=== PATIENT | female | born 1935 | race Caucasian/White ===

== ENCOUNTER 2023-01-27 23:58 | Observation (INO) ==
[2023-01-28] MEDS ORDERED: ALBUT/IPRATROP 3MG/0.5MG NEB 3 ML VIAL INH STA (00:21)
[2023-01-28] MEDS ORDERED: methylPREDNISolone 125 MG/2 ML VIAL IV STA (00:21)
[2023-01-28 00:42] LABS: Albumin Globulin Ratio 1.9 (0.9-2); Albumin Level 4.5 gm/dl (3.4-5.0); BUN Creatinine Ratio 12.7 (10-20); Bilirubin,Total 0.3 mg/dl (0.2-1.0); Creatinine Clr Calc Pharmacy 35.1 ml/min; Est GFR (Non-African American) 45.7 ml/min; Globulin 2.4 gm/dl (2.5-4.0); Magnesium 1.8 mg/dl (1.7-2.4); Potassium 3.6 mmol/L (3.5-5.1); Total Protein 6.9 gm/dl (6.0-8.3)
[2023-01-28 00:43] LABS: Basophils # (auto) 0.08 K/uL (0.00-0.20); Basophils % (auto) 1.1 %; Eosinophils # (auto) 0.79 K/uL (0.00-0.50); Eosinophils % (auto) 10.8 %; Hematocrit (blood only) 36.9 % (37.0-47.0); Hemoglobin 12.4 g/dl (12.0-16.0); Immature Granulocytes # (auto) 0.03 K/uL (0.01-0.20); Immature Granulocytes % (auto) 0.4 %; Lymphocytes # (auto) 1.74 K/uL (1.20-3.40); Lymphocytes % (auto) 23.9 %; Mean Corpuscular Hemoglobin 31.6 pg (25.0-34.0); Mean Corpuscular Hgb Conc 33.6 g/dL (32.0-36.0); Mean Corpuscular Volume 93.9 fL (80.0-100.0); Mean Platelet Volume 9.9 fL (9.4-12.4); Monocytes # (auto) 0.74 K/uL (0.11-0.59); Monocytes % (auto) 10.2 %; Neutrophils # (auto) 3.91 K/uL (1.40-6.50); Neutrophils % (auto) 53.6 %; Platelet Count 344 K/uL (130-400); RDW Coefficient of Variation 12.2 % (11.5-14.5); RDW Standard Deviation 42.4 fL (36.4-46.3); Red Blood Count 3.93 M/uL (4.20-5.40); White Blood Count 7.29 K/ul (4.8-10.8)
--- NOTE | 2023-01-28 00:53 | Emergency Department Note ---
History of Present Illness General Chief complaint: Shortness of Breath/Dyspnea Stated complaint: SHORTNESS OF BREATH, COUGH Time Seen by Provider: 01/28/23 00:06 History of Present Illness This 87-year-old female with a history of aspiration pneumonia presents to the ER for increasing shortness of breath and coughing who believes she is aspirating this past week. Patient had a barium swallow study recently at [facility] and I saw that she was actively aspirating on the study. She is due for surgery with ENT next week for a Zenker's diverticulum. Patient states her breathing is getting worse and is not feeling well. Past Med/Surg History Social History Smoking Status: Never smoker Preferred Language: Mohawk Feels Safe at Home: Yes Review of Systems A total of 10 systems reviewed and were otherwise negative Physical Exam Vital Signs Vital Signs - 24 hr 01/28/23 00:01 01/28/23 00:01 01/28/23 00:01 Temperature 36.7 C Temperature Source Oral Pulse Rate 98 H Pulse Rate from SpO2 Sensor Respiratory Rate 22 Respiratory Effort / Characteristics Respiratory Depth Normal Blood Pressure 196/116 H Blood Pressure Mean 142 Pulse Oximetry 96 Oxygen Delivery Method Room Air Room Air Room Air Sepsis Recent Fever Within 48 Hours No Sepsis New/Unexplained Change in Mental Status No Sepsis Action Taken by Nursing No Action Required 01/28/23 00:01 01/28/23 00:07 01/28/23 00:44 Temperature Temperature Source Pulse Rate 102 H Pulse Rate from SpO2 Sensor Respiratory Rate Respiratory Effort / Characteristics Non-Labored Respiratory Depth Normal Blood Pressure Blood Pressure Mean Pulse Oximetry 100 Oxygen Delivery Method Nebulizer Sepsis Recent Fever Within 48 Hours Sepsis New/Unexplained Change in Mental Status Sepsis Action Taken by Nursing 01/28/23 00:34 01/28/23 01:00 Temperature Temperature Source Pulse Rate 90 88 Pulse Rate from SpO2 Sensor 89 88 Respiratory Rate 15 20 Respiratory Effort / Characteristics Respiratory Depth Blood Pressure 172/77 H 131/67 Blood Pressure Mean 108 88 Pulse Oximetry 95 100 Oxygen Delivery Method Sepsis Recent Fever Within 48 Hours Sepsis New/Unexplained Change in Mental Status Sepsis Action Taken by Nursing VITALS: Vitals are noted on the nurse's note and reviewed by myself. Vital si gns reviewed. GENERAL: Pleasant female having a hard time speaking in full sentences, in no acute distress, nondiaphoretic, well-developed well-nourished. SKIN: The skin was without rashes, erythema, edema, or bruising. There is no tenting of the skin. Capillary reflex less than 2 seconds. HEAD: Normocephalic atraumatic. EARS: External auditory canals clear EYES: Pupils equal round and reactive to light and accommodation. Conjunctivae without injection, sclerae without icterus. Extraocular movements intact. NOSE: Patent, turbinates without inflammation or discharge. MOUTH: Mucous membranes moist. Pharynx without erythema or exudate. Uvula midline. Airway patent. Tongue does not deviate. NECK: Supple without nuchal rigidity. No lymphadenopathy. No thyromegaly. Cervical spine is nontender. No JVD. HEART: Regular rate and rhythm LUNGS: Diffuse inspiratory and end expiratory wheezes, No retractions or accessory muscle use. ABDOMEN: Positive bowel sounds x 4. Normal tympanic percussion. Soft, nontender, without masses or organomegaly. Ulloa sign negative. No guarding or rebound tenderness. No CVA tenderness MUSCULOSKELETAL: No muscle atrophy, erythema, or edema noted. NEURO: Patient was alert and oriented to person place and time. Normal sensation to light and sharp touch. No focal neurological deficits. Course Administered Medications Discontinued Medications Albuterol (Albut/Ipratrop 3mg/0.5mg Neb 3 Ml Vial) 3 ml INH NOW STA Stop: 01/28/23 00:22 Last Admin: 01/28/23 00:36 Dose: 3 ml Documented By: GERARDO Methylprednisolone (Methylprednisolone 125 Mg/2 Ml Vial) 125 mg IV NOW STA Stop: 01/28/23 00:22 Last Admin: 01/28/23 00:36 Dose: 125 mg Documented By: GERARDO Medical Decision Making Medical Records Attestation: I reviewed the patient's medical records. Home Medications Current Medication List: was personally reviewed by me Laboratory Data Attestation: I reviewed the patient's lab results. 01/28/23 00:10 01/28/23 00:10 Lab Results 01/28/23 01/28/23 01/28/23 Range/Units 00:10 00:10 00:35 WBC 7.29 (4.8-10.8) K/ul RBC 3.93 L (4.20-5.40) M/uL Hgb 12.4 (12.0-16.0) g/dl Hct 36.9 L (37.0-47.0) % MCV 93.9 (80.0-100.0) fL MCH 31.6 (25.0-34.0) pg MCHC 33.6 (32.0-36.0) g/dL RDW Std Deviation 42.4 (36.4-46.3) fL RDW Coeff of Jax 12.2 (11.5-14.5) % Plt Count 344 (130-400) K/uL MPV 9.9 (9.4-12.4) fL Immature Gran % (Auto) 0.4 % Neut % (Auto) 53.6 % Lymph % (Auto) 23.9 % [place] % (Auto) 10.2 % Eos % (Auto) 10.8 % Baso % (Auto) 1.1 % Neut # (Auto) 3.91 (1.40-6.50) K/uL Lymph # (Auto) 1.74 (1.20-3.40) K/uL [place] # (Auto) 0.74 H (0.11-0.59) K/uL Eos # (Auto) 0.79 H (0.00-0.50) K/uL Baso # (Auto) 0.08 (0.00-0.20) K/uL Immature Gran # (Auto) 0.03 (0.01-0.20) K/uL Sodium 137 (136-145) mmol/L Potassium 3.6 (3.5-5.1) mmol/L Chloride 103 (98-107) mmol/L Carbon Dioxide 25 (21-32) mmol/L Anion Gap 9 (3-11) BUN 14 (6-23) mg/dl Creatinine 1.10 (0.6-1.2) mg/dl Est Cr Clr Drug Dosing 35.1 ml/min Est GFR ( Amer) 53.0 ml/min Est GFR (Non-Af Amer) 45.7 ml/min BUN/Creatinine Ratio 12.7 (10-20) Glucose 131 H (70-99(Fasting)) mg/dl Lactate 2.3 H* (0.4-2.0) mmol/L Calcium 9.0 (8.6-10.3) mg/dl Magnesium 1.8 (1.7-2.4) mg/dl Total Bilirubin 0.3 (0.2-1.0) mg/dl AST 28 (13-39) U/L ALT 19 (7-52) U/L Alkaline Phosphatase 40 (34-104) U/L Troponin I High Sens 5.9 (0-14) pg/ml Total Protein 6.9 (6.0-8.3) gm/dl Albumin 4.5 (3.4-5.0) gm/dl Globulin 2.4 L (2.5-4.0) gm/dl Albumin/Globulin Ratio 1.9 (0.9-2) TSH 10.103 H (0.300-4.500) uIu/ml Free T4 1.09 (0.61-1.60) ng/dl Urine Color Urine Appearance (Clear) Urine pH (4.5-7.5) Ur Specific [place] (1.000-1.030) Urine Protein (Negative) Urine Glucose (UA) (Negative) Urine Ketones (Negative) Urine Blood (Negative) Urine Nitrite (Negative) Urine Bilirubin (Negative) Urine Urobilinogen (Negative) Ur Leukocyte Esterase (Negative) Urine WBC (Auto) (0-5) /hpf Urine RBC (Auto) (0-4) /hpf U Hyaline Cast (Auto) (0-5) /lpf U Epithel Cells (Auto) (0-5) /lpf Urine Bacteria (Auto) (Negative) Adenovirus (PCR) (NotDetected) B. pertussis DNA (PCR) (NotDetected) B.parapertussis DNA PCR (NotDetected) C. pneumoniae DNA (PCR) (NotDetected) Coronavirus OC43 (PCR) (NotDetected) Coronavirus HKU1 (PCR) (NotDetected) Coronavirus 229E (PCR) (NotDetected) SARS-CoV-2 (PCR) (NotDetected) Coronavirus NL63 (PCR) (NotDetected) Human Metapneumovir PCR (NotDetected) Influenza Type A (PCR) (NotDetected) Influenza Type B (PCR) (NotDetected) M. pneumoniae (PCR) (NotDetected) Parainfluenza 1 (PCR) (NotDetected) Parainfluenza 2 (PCR) (NotDetected) Parainfluenza 3 (PCR) (NotDetected) Parainfluenza 4 (PCR) (NotDetected) RSV (PCR) (NotDetected) Entero/Rhino (PCR) (NotDetected) 01/28/23 01/28/23 Range/Units 00:40 00:40 WBC (4.8-10.8) K/ul RBC (4.20-5.40) M/uL Hgb (12.0-16.0) g/dl Hct (37.0-47.0) % MCV (80.0-100.0) fL MCH (25.0-34.0) pg MCHC (32.0-36.0) g/dL RDW Std Deviation (36.4-46.3) fL RDW Coeff of Jax (11.5-14.5) % Plt Count (130-400) K/uL MPV (9.4-12.4) fL Immature Gran % (Auto) % Neut % (Auto) % Lymph % (Auto) % [place] % (Auto) % Eos % (Auto) % Baso % (Auto) % Neut # (Auto) (1.40-6.50) K/uL Lymph # (Auto) (1.20-3.40) K/uL [place] # (Auto) (0.11-0.59) K/uL Eos # (Auto) (0.00-0.50) K/uL Baso # (Auto) (0.00-0.20) K/uL Immature Gran # (Auto) (0.01-0.20) K/uL Sodium (136-145) mmol/L Potassium (3.5-5.1) mmol/L Chloride (98-107) mmol/L Carbon Dioxide (21-32) mmol/L Anion Gap (3-11) BUN (6-23) mg/dl Creatinine (0.6-1.2) mg/dl Est Cr Clr Drug Dosing ml/min Est GFR ( Amer) ml/min Est GFR (Non-Af Amer) ml/min BUN/Creatinine Ratio (10-20) Glucose (70-99(Fasting)) mg/dl Lactate (0.4-2.0) mmol/L Calcium (8.6-10.3) mg/dl Magnesium (1.7-2.4) mg/dl Total Bilirubin (0.2-1.0) mg/dl AST (13-39) U/L ALT (7-52) U/L Alkaline Phosphatase (34-104) U/L Troponin I High Sens (0-14) pg/ml Total Protein (6.0-8.3) gm/dl Albumin (3.4-5.0) gm/dl Globulin (2.5-4.0) gm/dl Albumin/Globulin Ratio (0.9-2) TSH (0.300-4.500) uIu/ml Free T4 (0.61-1.60) ng/dl Urine Color Yellow Urine Appearance Clear (Clear) Urine pH 5.5 (4.5-7.5) Ur Specific [place] 1.009 (1.000-1.030) Urine Protein Negative (Negative) Urine Glucose (UA) Negative (Negative) Urine Ketones Negative (Negative) Urine Blood Trace H (Negative) Urine Nitrite Negative (Negative) Urine Bilirubin Negative (Negative) Urine Urobilinogen Negative (Negative) Ur Leukocyte Esterase Negative (Negative) Urine WBC (Auto) 0 (0-5) /hpf Urine RBC (Auto) 0-4 (0-4) /hpf U Hyaline Cast (Auto) 0 (0-5) /lpf U Epithel Cells (Auto) 0-5 (0-5) /lpf Urine Bacteria (Auto) Negative (Negative) Adenovirus (PCR) Not Detected (NotDetected) B. pertussis DNA (PCR) Not Detected (NotDetected) B.parapertussis DNA PCR Not Detected (NotDetected) C. pneumoniae DNA (PCR) Not Detected (NotDetected) Coronavirus OC43 (PCR) Not Detected (NotDetected) Coronavirus HKU1 (PCR) Not Detected (NotDetected) Coronavirus 229E (PCR) Not Detected (NotDetected) SARS-CoV-2 (PCR) Not Detected (NotDetected) Coronavirus NL63 (PCR) Not Detected (NotDetected) Human Metapneumovir PCR Not Detected (NotDetected) Influenza Type A (PCR) Not Detected (NotDetected) Influenza Type B (PCR) Not Detected (NotDetected) M. pneumoniae (PCR) Not Detected (NotDetected) Parainfluenza 1 (PCR) Not Detected (NotDetected) Parainfluenza 2 (PCR) Not Detected (NotDetected) Parainfluenza 3 (PCR) Not Detected (NotDetected) Parainfluenza 4 (PCR) Not Detected (NotDetected) RSV (PCR) Not Detected (NotDetected) Entero/Rhino (PCR) Not Detected (NotDetected) Imaging Data Attestation: I personally reviewed and interpreted this imaging study as follows: MDM Narrative Prior records/ancillary studies reviewed. Triage Nursing notes reviewed. Additional history obtained from the family. The patient's history was concerning for respiratory difficulties. Differential diagnosis: Etiologies such as infections, reactive airway disease, pneumonia, pneumothorax, COPD, CHF, cardiac ischemia, pulmonary embolism, musculoskeletal, gastrointestinal, as well as others were entertained. Physical examination: As above. ER treatment provided: An order was placed for continuous cardiac monitoring. The monitor shows a rate of 60-1 10 with a sinus rhythm per my interpretation. Nebulizer, Solu-Medrol, Zosyn, vancomycin On reassessment the patient felt better. Diagnostic interpretation by me: The electrocardiogram was ordered for SOB. ECG: Normal sinus, normal intervals, no acute ST-T wave changes, rate of 96. Impression normal sinus rhythm independently interpreted by myself I think arrhythmia is unlikely. EKG shows normal sinus rhythm with no interval abnormalities such as QT prolongation or WPW. There are no findings to suggest Brugada syndrome. Cardiac monitoring in the emergency department reveals no tachycardic or bradycardic dysrhythmia. Hypertrophic cardiomyopathy was considered but there are no clear historical elements pointing toward this. EKG is not suggestive. The QRS voltage is not extremely large and there are no sugge stive Q waves. The labs Independently Interpreted by myself revealed no worrisome leukocytosis, mild hyperglycemia without DKA Imaging studies: Chest x-ray with no overt consolidation, pneumothorax or free air per my independent interpretation Consultation: A consultation was placed with the hospitalist. The case was discussed and diagnostics were reviewed. The patient was evaluated in the ER for further treatment. This appears to be consistent with aspiration pneumonia with asthma exacerbation. Patient was quite short of breath. She keeps on having recurrent aspiration. Family brought her here instead of [facility] secondary to the prolonged weights. I did review the patient's medical history on her [facility] benita. Patient is scheduled in the next week or [address] Dr[address] Casper for her Zenker's diverticulum. Patient was started on antibiotics. She was m edicated as above. Medicine was consulted and the case was discussed. She will be evaluated by the medical team for admission.. By the evaluation outlined above emergent etiologies such as CHF, cardiac ischemia, pulmonary embolism, pneumothorax, musculoskeletal, serious bacterial infections, as well as others were deemed relatively unlikely. The pt informed about the findings as listed above. All questions were answered and pleased with the treatment. The chart was completed utilizing [employer] Speech voice recognition software. Grammatical errors, random word insertions, pronoun errors, and incomplete sentences are an occassional consequence of this system due to software limitat ions, ambient noise, and hardware issues. Any formal questions or concerns about the content, text, or information contained within the body of this dictation should be directly addressed to the physician nursing assistant for clarification. Impression & Plan Aspiration pneumonia, Asthma with exacerbation Discharge Plan Visit Data Chief Complaint: Shortness of Breath/Dyspnea Stated Complaint: SHORTNESS OF BREATH, COUGH ED Provider: Ayala Richards ED Midlevel Provider: Chelle Martínez Discharge Problem: Aspiration pneumonia, Asthma with exacerbation Patient Disposition: Admitted As Inpatient Condition: Fair Forms Stand Alone Forms: [facility] Referrals Referrals: PCP,NO [Physician] - Aspiration pneumonia Qualifiers: Aspiration pneumonia type: unspecified Laterality: unspecified laterality Lung location: unspecified part of lung Qualified Code(s): J69.0 - Pneumonitis due to inhalation of food and vomit
[2023-01-28 01:00] LABS: Troponin I High Sensitivity 5.9 pg/ml (0-14)
[2023-01-28 01:07] LABS: Appearance Urine Clear (Clear); Bacteria Urine Automated Negative (Negative); Bilirubin Urine Negative (Negative); Blood Urine Trace (Negative); Cast Urine Automated 0 /lpf (0-5); Color Urine Yellow; Epithelial Cell Urine Auto 0-5 /lpf (0-5); Glucose Urine UA Negative (Negative); Ketones Urine Negative (Negative); Leukocyte Esterase Urine Negative (Negative); Nitrite Urine Negative (Negative); Protein Urine Negative (Negative); RBC Urine Automated 0-4 /hpf (0-4); Specific Gravity Urine 1.009 (1.000-1.030); Urobilinogen Urine Negative (Negative); WBC Urine Automated 0 /hpf (0-5); pH Urine 5.5 (4.5-7.5)
[2023-01-28 01:09] LABS: Thyroid Stimulating Hormone 10.103 uIu/ml (0.300-4.500)
[2023-01-28] MEDS ORDERED: VANCOMYCIN CONSULT ACTIVE PRN ×2 (01:35→04:45)
[2023-01-28] MEDS ORDERED: PIPERACILLIN/TAZOBACTAM 4.5 GM/100 ML BAG IV ONE (01:35)
[2023-01-28] MEDS ORDERED: VANCOMYCIN HCL 1,500 MG in SODIUM CHLORIDE 0.9% 500 ML IV ONE (01:35)
[2023-01-28 01:51] LABS: Adenovirus PCR Not Detected (NotDetected); Bordetella parapertussis PCR Not Detected (NotDetected); Bordetella pertussis PCR Not Detected (NotDetected); Chlamydia pneumoniae PCR Not Detected (NotDetected); Coronavirus 229E PCR Not Detected (NotDetected); Coronavirus CoV-2 (COVID19)PCR Not Detected (NotDetected); Coronavirus HKU1 PCR Not Detected (NotDetected); Coronavirus NL63 PCR Not Detected (NotDetected); Coronavirus OC43PCR Not Detected (NotDetected); Human Metapneumovirus PCR Not Detected (NotDetected); Influenza A PCR Not Detected (NotDetected); Influenza B PCR Not Detected (NotDetected); Mycoplasma pneumoniae PCR Not Detected (NotDetected); Parainfluenza Virus 1 PCR Not Detected (NotDetected); Parainfluenza Virus 2 PCR Not Detected (NotDetected); Parainfluenza Virus 3 PCR Not Detected (NotDetected); Parainfluenza Virus 4 PCR Not Detected (NotDetected); Respiratory Syncytial VirusPCR Not Detected (NotDetected); Rhinovirus/Enterovirus PCR Not Detected (NotDetected)
[2023-01-28 02:08] LABS: T4 Free Thyroxine 1.09 ng/dl (0.61-1.60)
[2023-01-28] MEDS ORDERED: SODIUM CHLORIDE 0.9% 1,000 ML IV ONE (02:32)
[2023-01-28] MEDS ORDERED: SODIUM CHLORIDE 0.9% 500 ML IV ONE (02:32)
--- NOTE | 2023-01-28 02:41 | History & Physical Report ---
Date of Service January 28, 2023 Assessment & Plan (1) Zenker's diverticulum: (2) Hypertension: (3) GERD (gastroesophageal reflux disease): (4) Aspiration pneumonia: Plan Aspiration pneumonia/asthma exacerbation- Secondary to Zenker's diverticulum and GERD Continue vancomycin IV and Zosyn IV begun in the ED Given Solu-Medrol 125 mg IV in ED, will continue 40 mg IV every 12 hours Duonebs every 4 hours while awake and every 2 hours when necessary. Consult speech therapy For now have pured food and nectar thickened liquids Aspiration precautions To undergo surgical repair of Zenker's diverticulum tentatively scheduled for 02/07/[address] Casper at [facility] Hypertension/valve replacement/history of left CEA- Continue metoprolol succinate ER 25 mg every morning and valsartan 80 mg every morning Continue clopidogrel GERD- Given famotidine 20 mg IV in the ED On Esomeprazole 40 mg daily orally as an outpatient Pantoprazole 40 mg IV daily while inpatient History of Present Illness Chief Complaint: The patient presents to the emergency department with hers and her family's concerns regarding increasing shortness of breath and coughing which they are concerned is related to aspiration that she was found to have during a barium swallow test 10 days ago at [facility] Primary Care Provider: Rika Ordonez The patient is an 87-year-old female with a past medical history including aspiration pneumonia, asthma, hyperlipidemia, allergic rhinitis, carotid artery stenosis, GERD, hypothyroidism, hypertension, hypokalemia, vitamin D deficiency and a Zenker's diverticulum. She presents to the emergency department with a few days of cough, associated with eating, and progressive shortness of breath and rattling sounds when she is breathing. She underwent a barium swallow test about 10 days ago at [facility], was found to have a Zenker's diverticulum, and is to undergo surgical repair by Dr. Casper at [facility] on 02/07/2023. Her daughter reports that she does best with pured foods, and thickened liquids, but she has been off her diet recently due to fami ly issues Past Med/Surg History Medical History (Updated 01/28/23 @ 04:14 by Cedric Patel MD) GERD (gastroesophageal reflux disease) Hyperlipidemia Hypertension Hypothyroidism (acquired) Vitamin D deficiency Zenker's diverticulum Surgical History (Updated 01/28/23 @ 04:14 by Cedric Patel MD) Heart valve replaced History of appendectomy History of cholecystectomy History of left-sided carotid endarterectomy Social History Smoking Status: Never smoker Preferred Language: Romanian Feels Safe at Home: Yes Review of Systems Review of Systems: The patient denies chest pain, palpitations, lower extremity swelling, sore throat, fevers, chills, sweats, vomiting, diarrhea , constipation, abdominal pain, pelvic pain, blood in urine or stool, dysuria, urinary frequency or urgency, lightheadedness, dizziness, headache, memory loss, loss of consciousness, rash, abnormal bruising or bleeding, imbalance, focal or generalized weakness, numbness or tingling in arms or legs, generalized arthralgias or myalgias, back or neck pain, or night sweats. The review of systems is otherwise negative other than for that already noted above, and at least 10 systems have been reviewed. Physical Exam Physical Exam: The patient is awake, alert and oriented 3, well developed and well nourished, normocephalic and atraumatic, lying in bed and in no acute distress. HEENT--PERRL, EOMI, mucous membranes and oropharynx mildly dry. Neck--supple. No JVD. No bruits. Thyroid normal, trachea midline, no a denopathy. Heart--normal S1 and S2. No murmurs, rubs or gallops. Lungs--diffuse inspiratory and extra wheezing bilaterally. No respiratory distress, no accessory muscle use. Abdomen--normal bowel sounds and soft. Nontender. Nondistended, no hernias or masses, no organomegaly. Extremities--no cyanosis or clubbing. No edema. Dermatologic--normal skin turgor, normal color, no abnormal lymph nodes, no rash. Neurologic--cranial nerves II through XII grossly intact. Rheumatologic--normal range of motion. Psychiatric--normal affect. Results & Data Results & Data Vital Signs (Past 12 Hours) Vital Signs Temp Pulse Resp BP Pulse Ox O2 Del Method 01/28/23 01:00 88 20 131/67 100 01/28/23 00:34 90 15 172/77 H 95 01/28/23 00:44 100 Nebulizer 01/28/23 00:07 102 H 01/28/23 00:01 Room Air 01/28/23 00:01 36.7 C 98 H 22 196/116 H 96 Room Air 01/28/23 00:01 Room Air Laboratory Results Laboratory Results WBC 7.29 K/ul (4.8-10.8) 01/28/23 00:10 RBC 3.93 M/uL (4.20-5.40) L 01/28/23 00:10 Hgb 12.4 g/dl (12.0-16.0) 01/28/23 00:10 Hct 36.9 % (37.0-47.0) L 01/28/23 00:10 MCV 93.9 fL (80.0-100.0) 01/28/23 00:10 MCH 31.6 pg (25.0-34.0) 01/28/23 00:10 MCHC 33.6 g/dL (32.0-36.0) 01/28/23 00:10 RDW Std Deviation 42.4 fL (36.4-46.3) 01/28/23 00:10 RDW Coeff of Jax 12.2 % (11.5-14.5) 01/28/23 00:10 Plt Count 344 K/uL (130-400) 01/28/23 00:10 MPV 9.9 fL (9.4-12.4) 01/28/23 00:10 Immature Gran % (Auto) 0.4 % 01/28/23 00:10 Neut % (Auto) 53.6 % 01/28/23 00:10 Lymph % (Auto) 23.9 % 01/28/23 00:10 [place]da % (Auto) 10.2 % 01/28/23 00:10 Eos % (Auto) 10.8 % 01/28/23 00:10 Baso % (Auto) 1.1 % 01/28/23 00:10 Neut # (Auto) 3.91 K/uL (1.40-6.50) 01/28/23 00:10 Lymph # (Auto) 1.74 K/uL (1.20-3.40) 01/28/23 00:10 [place]da # (Auto) 0.74 K/uL (0.11-0.59) H 01/28/23 00:10 Eos # (Auto) 0.79 K/uL (0.00-0.50) H 01/28/23 00:10 Baso # (Auto) 0.08 K/uL (0.00-0.20) 01/28/23 00:10 Immature Gran # (Auto) 0.03 K/uL (0.01-0.20) 01/28/23 00:10 Sodium 137 mmol/L (136-145) 01/28/23 00:10 Potassium 3.6 mmol/L (3.5-5.1) 01/28/23 00:10 Chloride 103 mmol/L (98-107) 01/28/23 00:10 Carbon Dioxide 25 mmol/L (21-32) 01/28/23 00:10 Anion Gap 9 (3-11) 01/28/23 00:10 BUN 14 mg/dl (6-23) 01/28/23 00:10 Creatinine 1.10 mg/dl (0.6-1.2) 01/28/23 00:10 Est Cr Clr Drug Dosing 35.1 ml/min 01/28/23 00:10 Est GFR ( Amer) 53.0 ml/min 01/28/23 00:10 Est GFR (Non-Af Amer) 45.7 ml/min 01/28/23 00:10 BUN/Creatinine Ratio 12.7 (10-20) 01/28/23 00:10 Glucose 131 mg/dl (70-99(Fasting)) H 01/28/23 00:10 Lactate 2.3 mmol/L (0.4-2.0) H* 01/28/23 00:35 Calcium 9.0 mg/dl (8.6-10.3) 01/28/23 00:10 Magnesium 1.8 mg/dl (1.7-2.4) 01/28/23 00:10 Total Bilirubin 0.3 mg/dl (0.2-1.0) 01/28/23 00:10 AST 28 U/L (13-39) 01/28/23 00:10 ALT 19 U/L (7-52) 01/28/23 00:10 Alkaline Phosphatase 40 U/L (34-104) 01/28/23 00:10 Troponin I High Sens 5.9 pg/ml (0-14) 01/28/23 00:10 Total Protein 6.9 gm/dl (6.0-8.3) 01/28/23 00:10 Albumin 4.5 gm/dl (3.4-5.0) 01/28/23 00:10 Globulin 2.4 gm/dl (2.5-4.0) L 01/28/23 00:10 Albumin/Globulin Ratio 1.9 (0.9-2) 01/28/23 00:10 TSH 10.103 uIu/ml (0.300-4.500) H 01/28/23 00:10 Free T4 1.09 ng/dl (0.61-1.60) 01/28/23 00:10 Urine Color Yellow 01/28/23 00:40 Urine Appearance Clear (Clear) 01/28/23 00:40 Urine pH 5.5 (4.5-7.5) 01/28/23 00:40 Ur Specific [place] 1.009 (1.000-1.030) 01/28/23 00:40 Urine Protein Negative (Negative) 01/28/23 00:40 Urine Glucose (UA) Negative (Negative) 01/28/23 00:40 Urine Ketones Negative (Negative) 01/28/23 00:40 Urine Blood Trace (Negative) H 01/28/23 00:40 Urine Nitrite Negative (Negative) 01/28/23 00:40 Urine Bilirubin Negative (Negative) 01/28/23 00:40 Urine Urobilinogen Negative (Negative) 01/28/23 00:40 Ur Leukocyte Esterase Negative (Negative) 01/28/23 00:40 Urine WBC (Auto) 0 /hpf (0-5) 01/28/23 00:40 Urine RBC (Auto) 0-4 /hpf (0-4) 01/28/23 00:40 U Hyaline Cast (Auto) 0 /lpf (0-5) 01/28/23 00:40 U Epithel Cells (Auto) 0-5 /lpf (0-5) 01/28/23 00:40 Urine Bacteria (Auto) Negative (Negative) 01/28/23 00:40 Adenovirus (PCR) Not Detected (NotDetected) 01/28/23 00:40 B. pertussis DNA (PCR) Not Detected (NotDetected) 01/28/23 00:40 B.parapertussis DNA PCR Not Detected (NotDetected) 01/28/23 00:40 C. pneumoniae DNA (PCR) Not Detected (NotDetected) 01/28/23 00:40 Coronavirus OC43 (PCR) Not Detected (NotDetected) 01/28/23 00:40 Coronavirus HKU1 (PCR) Not Detected (NotDetected) 01/28/23 00:40 Coronavirus 229E (PCR) Not Detected (NotDetected) 01/28/23 00:40 SARS-CoV-2 (PCR) Not Detected (NotDetected) 01/28/23 00:40 Coronavirus NL63 (PCR) Not Detected (NotDetected) 01/28/23 00:40 Human Metapneumovir PCR Not Detected (NotDetected) 01/28/23 00:40 Influenza Type A (PCR) Not Detected (NotDetected) 01/28/23 00:40 Influenza Type B (PCR) Not Detected (NotDetected) 01/28/23 00:40 M. pneumoniae (PCR) Not Detected (NotDetected) 01/28/23 00:40 Parainfluenza 1 (PCR) Not Detected (NotDetected) 01/28/23 00:40 Parainfluenza 2 (PCR) Not Detected (NotDetected) 01/28/23 00:40 Parainfluenza 3 (PCR) Not Detected (NotDetected) 01/28/23 00:40 Parainfluenza 4 (PCR) Not Detected (NotDetected) 01/28/23 00:40 RSV (PCR) Not Detected (NotDetected) 01/28/23 00:40 Entero/Rhino (PCR) Not Detected (NotDetected) 01/28/23 00:40 Code Status & VTE Plan Code Status Full code VTE Prophylaxis Plan VTE Prophylaxis will be ordered: Yes PG Care Time/CCT Total # of Minutes Spent Total Time Spent with Patient: Total time spent is greater than 50% in coordination of care (as documented) at patient's floor/unit and/or counseling patient: Coding Level of Care Code 33863 INT INP/OBS CARE 3/75MIN Diagnoses Zenker's diverticulum K22.5 Hypertension I10 GERD (gastroesophageal reflux disease) K21.9 Aspiration pneumonia J69.0 Aspiration pneumonia type: unspecified Laterality: unspecified laterality Lung location: unspecified part of lung (4) Aspiration pneumonia Aspiration pneumonia type: unspecified Laterality: unspecified laterality Lung location: unspecified part of lung Qualified Code(s): J69.0 - Pneumonitis due to inhalation of food and vomit
--- NOTE | 2023-01-28 03:14 | Emergency Department Note ---
ED Visit Note I agree with the diagnosis and management decisions and have been personally involved in the case. Patient is likely suffering from an aspiration event. Patient's lactate is noted to be 2.3 with a normal WBC and no fever. She was covered with broad-spectrum antibiotics and given IV fluids based on ideal body weight at 30 mL/kg. patient's case was discussed with the hospitalist service for admission and further management. Please see Kirsty Martínez PA-C's notes for further details of the history, physical and visit. .
[2023-01-28] MEDS ORDERED: INFLUENZA VACCINE HIGH-DOSE (HD-IIV4) PF 65+ 0.7mL SYR IM ONE (04:44)
[2023-01-28] MEDS ORDERED: ACETAMINOPHEN 325 MG TAB PO PRN (04:45)
[2023-01-28] MEDS ORDERED: ONDANSETRON INJ 2 MG/ML 2 ML VIAL IV PRN (04:45)
[2023-01-28] MEDS: NSS + 20MEQ KCL 20 MEQ/1,000 ML BAG IV SCH (05:45)
[2023-01-28] MEDS: ALBUT/IPRATROP 3MG/0.5MG NEB 3 ML VIAL NEB SCH ×4 (06:57→19:54)
--- NOTE | 2023-01-28 07:19 | Pharmacy Report ---
Pharmacy PK ABX Note - Date of Service January 28, 2023 - Assessment and Plan Assessment * Ms Redd is an 87 year old F receiving vanc/Zosyn for treatment of aspiration pna/asthma exac. * Pertinent microbiologic data includes: blood cx pending Plan Vancomycin * Loading dose: 1500 mg IV x 1 * Maintenance dose: 1250 mg IV every 24 hours * Regimen is predicted to achieve target AUC/KEMAR of 400-600 mg/L.hr * Will evaluate a vanc level in 24-48hr if pt remains on vanc therapy Zosyn 4.5gm IV q8h Pharmacy will continue to follow and will adjust dose/frequency as necessary. Thank you. Pharmacy has transitioned to AUC monitoring for vancomycin. AUC/KEMAR is the preferred PK/PD target and is associated with decreased risk of nephrotoxicity compared to traditional trough targets.
[2023-01-28] MEDS: PIPERACILLIN/TAZOBACTAM 4.5 GM in DEXTROSE 5% MINI-B 100 ML IV SCH ×2 (07:29→18:24)
--- NOTE | 2023-01-28 07:33 | XRay Report ---
XR chest 1V portable CLINICAL HISTORY: Dyspnea. COMPARISON STUDY: No previous studies for comparison. FINDINGS: Lung volumes are mildly diminished. There is no pneumothorax or pleural effusion. Prostheti c cardiac valve is noted. Borderline cardiomegaly. No evidence for pulmonary edema. There is no conso lidation to suggest pneumonia. Minimal left basilar opacity favors atelectasis. IMPRESSION: 1. No acute cardiopulmonary findings. 2. Low lung volumes. Mild left basilar opacity which favors atelectasis. ACT 112: Negative or not required by law. Electronically signed by: Eddie Mckeon M.D. 01/28/2023 7:32 AM
[2023-01-28] MEDS: methylPREDNISolone 40 MG in SYRINGE 0 ML IV SCH ×2 (09:20→21:11)
--- NOTE | 2023-01-28 09:42 | Electrocardiogram Report ---
Test Reason : Blood Pressure : / mmHG Vent. Rate : 096 BPM Atrial Rate : 096 BPM P-R Int : 200 ms QRS Dur : 074 ms QT Int : 362 ms P-R-T Axes : 009 -05 034 degrees QTc Int : 457 ms Normal sinus rhythm Voltage criteria for left ventricular hypertrophy Borderline ECG No previous ECGs available Confirmed by Karsten Riley ([id number]) on 01/28/2023 9:41:46 AM Referred By: REFERRED SELF Confirmed By:Karsten Riley
[2023-01-28] MEDS ORDERED: VANCOMYCIN HCL 1,250 MG in SODIUM CHLORIDE 0.9% 250 ML IV SCH (16:00)
--- NOTE | 2023-01-28 17:17 | XRay Report ---
XR chest 2V PA/lateral CLINICAL HISTORY: diffuse b/l wheezing, crackles b/l; eval pneumonia COMPARISON STUDY: Chest radiograph performed earlier today. FINDINGS: Lung volumes are normal. There is no pneumothorax or pleural effusion. No consolidation is identified to suggest pneumonia. There is no evidence for pulmonary edema. There is mild cardiomegaly . Prosthetic cardiac valve is noted. Surgical clips within the neck are incidentally noted. IMPRESSION: No acute cardiopulmonary findings. ACT 112: Negative or not required by law. Electronically signed by: Eddie Mckeon M.D. 01/28/2023 5:16 PM
[2023-01-28] MEDS ORDERED: CLOPIDOGREL BISULFATE 75 MG TAB PO ONE (19:18)
--- NOTE | 2023-01-28 19:25 | Hospitalist Progress Note ---
Date of Service January 28, 2023 Assessment & Plan (1) Aspiration pneumonia: Plan: suspected. remains on zosyn. has diffuse wheezing on lung exam. cont nebs. cont IV steroids. cont IV abx. video swallow tomorrow by speech therapy. repeat cxr this evening. (2) Zenker's diverticulum: Plan: Dx ~2 weeks ago at [facility]. Thought to be causing most of her dysphagia. To undergo surgical repair of Zenker's diverticulum on 02/07/[address] Casper at [facility]. Appreciate speech therapy consult. NPO and to have video swallow exam tomorrow. (3) Lactic acidosis: Plan: etiology? the lactic acidosis persists despite being normotensive, looking nontoxic, having intact renal function, having normal LFTs, etc. She does have #4 below but, again, there is not evidence of shock. trend the lactate. check a VBG tonight. if lactate elevation persists check a thiamine level - Wernicke's can cause lactic acidosis. (4) Left ventricular outflow tract obstruction: Plan: harsh systolic murmur on exam. daughter just happened to have her latest echo from a few weeks ago on her phone. this confirmed LVOT obstruction with gradient of 20mmHg. resume metoprolol. stop ARB. hydrate. avoid afterload reduction. BP remains stable. (5) Hypertension: Plan: resume metoprolol but stop ARB due to #4 above. (6) GERD (gastroesophageal reflux disease): Plan: place on IV PPI twice daily. cont pepcid 20mg BID as well. (7) H/O aortic valve replacement: Plan: bioprosthetic [facility] follows with cardiology in [place] (8) Hypothyroidism (acquired): Plan: TSH elevated pt admits to missing several doses of synthroid at home will not change her dose simply encourage compliance repeat TSH as outpatient in a few weeks (9) Hyperlipidemia: Plan: resume usual meds for such (10) History of left-sided carotid endarterectomy: Plan: cont plavix cont cholesterol agents Plan daughter updated at bedside extensively Admission and Anticipated Discharge Date Admission Date: January 28, 2023 Subjective pt resting in bed daughter was at bedside pt's daughter able to provide information about her mother's conditions has had trouble w/ swallowing for about a year had barium swallow ~2 weeks in [place] - showed a large Zenker's diverticulum thought to have aspirated during that study scheduled to have surgery on the Zenker's in about 10 days patient continues to have cough but no O2 requirement during my assessment I heard a very loud murmur on exam pt sees cardiology in [place] due to prior AVR surgery the daughter states Ms Redd just had an echo several weeks ago in [place] she was able to bring the echo up on her phone this showed no AI from her AVR did show LVOT obstruction with gradient of 20mmHg she was "Cleared" for surgery by cardiology (zenker's repair) Review of Systems Review of Systems: gen - no fevers cv - no chest pain pulm - cough, congestion, dyspnea, wheezing GI - no abd pain Physical Exam Physical Exam: gen - coughing, but NAD neck - JVD present mouth - MMM heart - 3-4/6 holosystolic murmur heard all over chest but loudest at the RUSB, s1 s2, RRR but borderline tachy lungs - diffuse wheezes ALL lung segments, minimal rales bases, coughing; no increased work of breathing abd - soft NT ND BS+ ext - no edema, pulses 2 + b/l psych - a/o x 3 Results & Data Results & Data Vital Signs (Past 12 Hours) Vital Signs Temp Pulse Pulse Resp BP Pulse Ox O2 Del Method 01/28/23 15:36 87 01/28/23 15:44 37.0 C 94 H 20 145/65 H 94 Room Air 01/28/23 15:30 94 H 18 96 Room Air 01/28/23 11:42 36.3 C L 101 H 22 166/70 H 96 Room Air 01/28/23 11:13 91 H 18 96 Room Air 01/28/23 08:06 36.8 C 88 20 131/70 95 Room Air 01/28/23 07:46 84 01/28/23 07:40 Room Air Laboratory Results Laboratory Results - last 24 hr 01/28/23 01/28/23 01/28/23 00:10 00:10 00:35 WBC 7.29 RBC 3.93 L Hgb 12.4 Hct 36.9 L MCV 93.9 MCH 31.6 MCHC 33.6 RDW Std Deviation 42.4 RDW Coeff of Jax 12.2 Plt Count 344 MPV 9.9 Immature Gran % (Auto) 0.4 Neut % (Auto) 53.6 Lymph % (Auto) 23.9 [place] % (Auto) 10.2 Eos % (Auto) 10.8 Baso % (Auto) 1.1 Neut # (Auto) 3.91 Lymph # (Auto) 1.74 [place] # (Auto) 0.74 H Eos # (Auto) 0.79 H Baso # (Auto) 0.08 Immature Gran # (Auto) 0.03 Sodium 137 Potassium 3.6 Chloride 103 Carbon Dioxide 25 Anion Gap 9 BUN 14 Creatinine 1.10 Est Cr Clr Drug Dosing 35.1 Est GFR ( Amer) 53.0 Est GFR (Non-Af Amer) 45.7 BUN/Creatinine Ratio 12.7 Glucose 131 H Lactate 2.3 H* Calcium 9.0 Magnesium 1.8 Total Bilirubin 0.3 AST 28 ALT 19 Alkaline Phosphatase 40 Troponin I High Sens 5.9 B-Natriuretic Peptide Total Protein 6.9 Albumin 4.5 Globulin 2.4 L Albumin/Globulin Ratio 1.9 TSH 10.103 H Free T4 1.09 Urine Color Urine Appearance Urine pH Ur Specific Wever Urine Protein Urine Glucose (UA) Urine Ketones Urine Blood Urine Nitrite Urine Bilirubin Urine Urobilinogen Ur Leukocyte Esterase Urine WBC (Auto) Urine RBC (Auto) U Hyaline Cast (Auto) U Epithel Cells (Auto) Urine Bacteria (Auto) Nasal Screen MRSA (PCR) Adenovirus (PCR) B. pertussis DNA (PCR) B.parapertussis DNA PCR C. pneumoniae DNA (PCR) Coronavirus OC43 (PCR) Coronavirus HKU1 (PCR) Coronavirus 229E (PCR) SARS-CoV-2 (PCR) Coronavirus NL63 (PCR) Human Metapneumovir PCR Influenza Type A (PCR) Influenza Type B (PCR) M. pneumoniae (PCR) Parainfluenza 1 (PCR) Parainfluenza 2 (PCR) Parainfluenza 3 (PCR) Parainfluenza 4 (PCR) RSV (PCR) Entero/Rhino (PCR) 01/28/23 01/28/23 01/28/23 00:40 00:40 05:43 WBC RBC Hgb Hct MCV MCH MCHC RDW Std Deviation RDW Coeff of Jax Plt Count MPV Immature Gran % (Auto) Neut % (Auto) Lymph % (Auto) [place] % (Auto) Eos % (Auto) Baso % (Auto) Neut # (Auto) Lymph # (Auto) [place] # (Auto) Eos # (Auto) Baso # (Auto) Immature Gran # (Auto) Sodium Potassium Chloride Carbon Dioxide Anion Gap BUN Creatinine Est Cr Clr Drug Dosing Est GFR ( Amer) Est GFR (Non-Af Amer) BUN/Creatinine Ratio Glucose Lactate 5.0 H* Calcium Magnesium Total Bilirubin AST ALT Alkaline Phosphatase Troponin I High Sens B-Natriuretic Peptide Total Protein Albumin Globulin Albumin/Globulin Ratio TSH Free T4 Urine Color Yellow Urine Appearance Clear Urine pH 5.5 Ur Specific Wever 1.009 Urine Protein Negative Urine Glucose (UA) Negative Urine Ketones Negative Urine Blood Trace H Urine Nitrite Negative Urine Bilirubin Negative Urine Urobilinogen Negative Ur Leukocyte Esterase Negative Urine WBC (Auto) 0 Urine RBC (Auto) 0-4 U Hyaline Cast (Auto) 0 U Epithel Cells (Auto) 0-5 Urine Bacteria (Auto) Negative Nasal Screen MRSA (PCR) Adenovirus (PCR) Not Detected B. pertussis DNA (PCR) Not Detected B.parapertussis DNA PCR Not Detected C. pneumoniae DNA (PCR) Not Detected Coronavirus OC43 (PCR) Not Detected Coronavirus HKU1 (PCR) Not Detected Coronavirus 229E (PCR) Not Detected SARS-CoV-2 (PCR) Not Detected Coronavirus NL63 (PCR) Not Detected Human Metapneumovir PCR Not Detected Influenza Type A (PCR) Not Detected Influenza Type B (PCR) Not Detected M. pneumoniae (PCR) Not Detected Parainfluenza 1 (PCR) Not Detected Parainfluenza 2 (PCR) Not Detected Parainfluenza 3 (PCR) Not Detected Parainfluenza 4 (PCR) Not Detected RSV (PCR) Not Detected Entero/Rhino (PCR) Not Detected 01/28/23 01/28/23 01/28/23 06:00 15:46 15:46 WBC RBC Hgb Hct MCV MCH MCHC RDW Std Deviation RDW Coeff of Jax Plt Count MPV Immature Gran % (Auto) Neut % (Auto) Lymph % (Auto) [place] % (Auto) Eos % (Auto) Baso % (Auto) Neut # (Auto) Lymph # (Auto) [place] # (Auto) Eos # (Auto) Baso # (Auto) Immature Gran # (Auto) Sodium Potassium Chloride Carbon Dioxide Anion Gap BUN Creatinine Est Cr Clr Drug Dosing Est GFR ( Amer) Est GFR (Non-Af Amer) BUN/Creatinine Ratio Glucose Lactate 4.4 H* Calcium Magnesium Total Bilirubin AST ALT Alkaline Phosphatase Troponin I High Sens B-Natriuretic Peptide 472 H Total Protein Albumin Globulin Albumin/Globulin Ratio TSH Free T4 Urine Color Urine Appearance Urine pH Ur Specific Wever Urine Protein Urine Glucose (UA) Urine Ketones Urine Blood Urine Nitrite Urine Bilirubin Urine Urobilinogen Ur Leukocyte Esterase Urine WBC (Auto) Urine RBC (Auto) U Hyaline Cast (Auto) U Epithel Cells (Auto) Urine Bacteria (Auto) Nasal Screen MRSA (PCR) Negative Adenovirus (PCR) B. pertussis DNA (PCR) B.parapertussis DNA PCR C. pneumoniae DNA (PCR) Coronavirus OC43 (PCR) Coronavirus HKU1 (PCR) Coronavirus 229E (PCR) SARS-CoV-2 (PCR) Coronavirus NL63 (PCR) Human Metapneumovir PCR Influenza Type A (PCR) Influenza Type B (PCR) M. pneumoniae (PCR) Parainfluenza 1 (PCR) Parainfluenza 2 (PCR) Parainfluenza 3 (PCR) Parainfluenza 4 (PCR) RSV (PCR) Entero/Rhino (PCR) PG Care Time/CCT Total # of Minutes Spent Total Time Spent with Patient: Total time spent is greater than 50% in coordination of care (as documented) at patient's floor/unit and/or counseling patient: Coding Level of Care Code 24149 SUB INP/OBS CARE 3/50MIN Diagnoses Aspiration pneumonia J69.0 Aspiration pneumonia type: unspecified Laterality: unspecified laterality Lung location: unspecified part of lung Zenker's diverticulum K22.5 Lactic acidosis E87.20 Left ventricular outflow tract obstruction Q24.8 Hypertension I10 GERD (gastroesophageal reflux disease) K21.9 H/O aortic valve replacement Z95.2 Hypothyroidism (acquired) E03.9 Hyperlipidemia E78.5 History of left-sided carotid endarterectomy Z98.890 (1) Aspiration pneumonia Aspiration pneumonia type: unspecified Laterality: unspecified laterality Lung location: unspecified part of lung Qualified Code(s): J69.0 - Pneumonitis due to inhalation of food and vomit
[2023-01-28] MEDS: PANTOprazole 40 MG in SYRINGE 0 ML IV SCH (20:58)
[2023-01-28] MEDS: FAMOTIDINE 20 MG TAB PO SCH (21:10)
[2023-01-28] MEDS: METOPROLOL SUCC 25MG EXT REL TAB PO SCH (21:10)
[2023-01-28] MEDS: FENOFIBRATE NANOCRYSTALLIZED 145 MG TABLET PO SCH (21:10)
[2023-01-28] MEDS ORDERED: METOPROLOL TARTRATE 1 MG/ML VIAL IV STA (21:31)
[2023-01-28 21:34] LABS: Base Excess VBG -2.8 mEq/L; HCO3 VBG 22 mmol/L; Oxygen Saturation VBG 68.9 %; PCO2 VBG 37 mmHg (38-50); PO2 VBG 43 mmHg; pH VBG 7.38 (7.36-7.41)
[2023-01-28] MEDS ORDERED: FAMOTIDINE 20 MG in SYRINGE 3 ML IV ONE (21:35)
[2023-01-29] MEDS: PIPERACILLIN/TAZOBACTAM 4.5 GM in DEXTROSE 5% MINI-B 100 ML IV SCH ×3 (01:43→15:50)
[2023-01-29] MEDS: NSS + 20MEQ KCL 20 MEQ/1,000 ML BAG IV SCH (05:26)
[2023-01-29] MEDS: LEVOTHYROXINE SODIUM 112 MCG TABLET PO SCH ×2 (05:32→05:35)
[2023-01-29 06:25] LABS: BUN Creatinine Ratio 18.9 (10-20); Calcium 8.2 mg/dl (8.6-10.3); Creatinine Clr Calc Pharmacy 38.4 ml/min; Est GFR (African American) 55.4 ml/min; Est GFR (Non-African American) 47.8 ml/min; Potassium 4.2 mmol/L (3.5-5.1)
[2023-01-29] MEDS: ALBUT/IPRATROP 3MG/0.5MG NEB 3 ML VIAL NEB SCH ×4 (07:27→19:36)
[2023-01-29] MEDS: PANTOprazole 40 MG in SYRINGE 0 ML IV SCH ×2 (08:06→21:02)
[2023-01-29] MEDS: methylPREDNISolone 40 MG in SYRINGE 0 ML IV SCH ×2 (08:06→23:04)
[2023-01-29] MEDS: CLOPIDOGREL BISULFATE 75 MG TAB PO SCH (08:12)
[2023-01-29] MEDS: FAMOTIDINE 20 MG TAB PO SCH ×2 (10:01→21:03)
[2023-01-29] MEDS: METOPROLOL SUCC 25MG EXT REL TAB PO SCH (10:01)
[2023-01-29] MEDS ORDERED: THIAMINE HCL 200 MG in SODIUM CHLORIDE 0.9% 50 ML IV STA (10:04)
[2023-01-29] MEDS: METOPROLOL TARTRATE 1 MG/ML VIAL IV SCH ×3 (11:48→17:46)
--- NOTE | 2023-01-29 15:40 | Fluoroscopy Report ---
FL video swallow CLINICAL HISTORY: assess for aspiration TECHNIQUE: Video fluoroscopy of the pharyngeal region was performed as barium mixtures of varying con sistencies were administered to the patient by the speech pathologist. A formal esophagram was not pe rformed. Comparison: None available at the time of this dictation. FINDINGS: Total fluoroscopy time: 2.31 minutes. Radiation dose: 14.0 mGy. The patient swallowed the different barium consistencies without difficulty. There was no laryngeal v estibular penetration or alysa tracheal aspiration. Pooling of barium was noted in the bilateral piri form sinuses and valleculae. IMPRESSION: No evidence of aspiration. Please see the speech pathology report for further details. ACT 112: Negative or not required by law. Electronically signed by: Yyao Weinberg M.D. 01/29/2023 3:39 PM
--- NOTE | 2023-01-29 16:38 | Hospitalist Progress Note ---
Date of Service January 29, 2023 Assessment & Plan (1) Aspiration pneumonia: Plan: suspected - but cxr x 2 without pneumonic infiltrates. despite 48+ hours of IV steroids, nebs, and IV zosyn she continues with severe, diffuse wheezing on lung exam. video swallow results noted -- no aspiration despite her Zenker's diverticulum. family reports a prior dx of "asthma" and has seen pulmonary in [place]. just had PFTs sometime in the last few months - family was told they were normal (I don't have those PFTs). to get more information on current clinical state, r/o pneumonia, r/o other lung diseases -- obtain noncontrast chest CT. will ask pulmonary to see in consult. has eosinophilia - see below. if CT chest does not show pneumonia would stop zosyn. (2) Asthma: Plan: diagnosis made in [place] at some point in the past. has albuterol at home, but is not on other agents (controller agent, etc). daughter to bring a copy of her PFTs tomorrow. CT chest ordered. pulmonary consult. cont steroids and nebs and pulm toilet. (3) Eosinophilia: Plan: 10.5% on admission cbc differential. this may be a clue to the etiology of the above. eosinophilic asthma? other eosinophilic lung disease? chest CT pending. repeat cbc w/ diff in am. check sed rate. pulmonary consult. review PFTs once daughter brings in copy from home. (4) Zenker's diverticulum: Plan: Dx ~2 weeks ago at [facility]. Thought to be causing most of her dysphagia. To undergo surgical repair of Zenker's diverticulum on 02/07/[address] Casper at [facility]. Appreciate speech therapy consult. Video swallow WITHOUT aspiration despite the Zenker's. cont PPI. minced/moist diet. crush pills - put in pudding carrier. (5) Lactic acidosis: Plan: etiology? the lactic acidosis took 24 hours to resolve. despite the elevated lactate her pH was NORMAL. she has never been hypotensive. normal renal function. lactate improved with IV Fluids. etiology?? does have LVOT obstruction but she never had evidence of cardiogenic shock. check a thiamine level - Wernicke's can cause lactic acidosis. while awaiting level - place on IV thiamine. (6) Left ventricular outflow tract obstruction: Plan: harsh systolic murmur on exam. daughter just happened to have her latest echo from a few weeks ago on her phone (done at [facility]). this confirmed LVOT obstruction with gradient of 20mmHg. resumed metoprolol. stop ARB. avoid afterload reduction. BP remains stable. will repeat her echo to ensure her AVR is intact and repeat measurements of her LVOT obstruction. of note - I do not believe she has volume overload causing her pulmonary symptoms. (7) Hypertension: Plan: resumed metoprolol but stop ARB due to #4 above. (8) GERD (gastroesophageal reflux disease): Plan: place on IV PPI twice daily. cont pepcid 20mg BID as well. (9) H/O aortic valve replacement: Plan: bioprosthetic [facility] [place] follows with cardiology in [place] repeat echo requested daughter to print out the echo report from [place] and drop off to us (10) Hypothyroidism (acquired): Plan: TSH elevated pt admits to missing several doses of synthroid at home will not change her dose simply encourage compliance repeat TSH as outpatient in a few weeks (11) Hyperlipidemia: Plan: resume usual meds for such (12) History of left-sided carotid endarterectomy: Plan: cont plavix cont cholesterol agents Plan multiple family members updated at bedside today complex care coordination Admission and Anticipated Discharge Date Admission Date: January 28, 2023 Subjective saw patient post-video swallow 3 of her daughters were present at bedside we discussed the video results and that it does not appear she is actively aspirating despite the Zenker's diverticulum family gives additional information - * patient has been sick with wheezing/cough/congestion off & on for 6 months * had PFTs - does see a pulmonology group in [place] - sometime this summer and was told they were normal * HOWEVER, family reports she was diagnosed with asthma in the past, possibly triggered by allergies? * has had multiple ER visits and PCP visits in [place] for her breathing over the last 6 months requiring abx and steroids on multiple occasions * gets better briefly, then symptoms return * was not a smoker * has not had a CT chest to the family's knowledge * symptoms are worse with laying down * walking makes her cough and dyspnea worse * talking sometimes makes her cough tele overnight wnl patient does report feeling somewhat better than in comparison to admission Review of Systems Review of Systems: gen - no fevers or chills cv - no chest pain, but occasionally gets a discomfort in the lower neck/upper chest region w/ swallowing pulm - no hemoptysis; ongoing wheezing/cough/congestion GI - no abd pain or nausea/emesis Physical Exam Physical Exam: gen - coughing, but NAD, comfortable sitting in bed neck - ? mild JVD present mouth - MMM heart - 3-4/6 holosystolic murmur heard all over chest but loudest at the RUSB, s1 s2, RRR lungs - diffuse wheezes ALL lung segments - no changes from prior exam; minimal rales bases; no increased work of breathing; taking deep breaths causes her to cough abd - soft NT ND BS+ ext - no edema, pulses 2 + b/l psych - a/o x 3 Results & Data Results & Data Vital Signs (Past 12 Hours) Vital Signs Temp Pulse Pulse Resp BP BP Pulse Ox 01/29/23 15:50 36.7 C 85 20 144/70 H 97 01/29/23 13:13 01/29/23 12:03 85 135/64 01/29/23 11:41 36.8 C 86 18 115/72 96 01/29/23 07:25 73 01/29/23 11:07 96 H 18 95 01/29/23 08:06 36.6 C 71 20 118/68 99 01/29/23 07:27 89 18 95 O2 Del Method 01/29/23 15:50 Room Air 01/29/23 13:13 Room Air 01/29/23 12:03 01/29/23 11:41 Room Air 01/29/23 07:25 01/29/23 11:07 Room Air 01/29/23 08:06 Nebulizer 01/29/23 07:27 Room Air Laboratory Results Laboratory Results - last 24 hr 01/28/23 01/28/23 01/28/23 21:06 21:06 21:06 VBG pH 7.38 VBG pCO2 37 L VBG pO2 43 VBG HCO3 22 VBG O2 Saturation 68.9 VBG Base Excess -2.8 Sodium Potassium Chloride Carbon Dioxide Anion Gap BUN Creatinine Est Cr Clr Drug Dosing Est GFR ( Amer) Est GFR (Non-Af Amer) BUN/Creatinine Ratio Glucose Lactate 3.2 H* Calcium C-Reactive Protein 0.50 Vitamin B1 10/02/23 10/02/23 10/02/23 05:42 05:42 05:42 VBG pH VBG pCO2 VBG pO2 VBG HCO3 VBG O2 Saturation VBG Base Excess Sodium 140 Potassium 4.2 Chloride 109 H Carbon Dioxide 24 Anion Gap 7 BUN 20 Creatinine 1.06 Est Cr Clr Drug Dosing 38.4 Est GFR ( Amer) 55.4 Est GFR (Non-Af Amer) 47.8 BUN/Creatinine Ratio 18.9 Glucose 140 H Lactate 2.1 H* Calcium 8.2 L C-Reactive Protein Vitamin B1 Pending PG Care Time/CCT Total # of Minutes Spent Total Time Spent with Patient: Total time spent is greater than 50% in coordination of care (as documented) at patient's floor/unit and/or counseling patient: Coding Level of Care Code 05703 SUB INP/OBS CARE 3/50MIN Diagnoses Aspiration pneumonia J69.0 Aspiration pneumonia type: unspecified Laterality: unspecified laterality Lung location: unspecified part of lung Asthma J45.909 Eosinophilia D72.10 Zenker's diverticulum K22.5 Lactic acidosis E87.20 Left ventricular outflow tract obstruction Q24.8 Hypertension I10 GERD (gastroesophageal reflux disease) K21.9 H/O aortic valve replacement Z95.2 Hypothyroidism (acquired) E03.9 Hyperlipidemia E78.5 History of left-sided carotid endarterectomy Z98.890 (1) Aspiration pneumonia Aspiration pneumonia type: unspecified Laterality: unspecified laterality Lung location: unspecified part of lung Qualified Code(s): J69.0 - Pneumonitis due to inhalation of food and vomit
--- NOTE | 2023-01-29 18:38 | CT Scan Report ---
CT SCAN OF THE CHEST WITHOUT IV CONTRAST CLINICAL HISTORY: Cough and wheezing. COMPARISON STUDY: Chest x-ray dated 01/28/2023. TECHNIQUE: CT scan of the thorax was performed from the thoracic inlet to the upper abdomen. Images are reviewed in the axial, sagittal, and coronal planes. IV contrast was not administered for this ex amination as per the referring clinician. A dose lowering technique was utilized adhering to the [facility]. The examination is degraded by motion artifact. CT DOSE: 432.17 mGy.cm FINDINGS: Thyroid: Atrophic versus surgically absent. Thoracic aorta: There is atherosclerotic calcification of the thoracic aorta, which is normal in chris estuardo and demonstrates standard 3-vessel arch anatomy. Heart: There is evidence of previous aortic valve surgery. The heart is enlarged and without pericard ial effusion. The coronary arteries and mitral annulus are densely calcified. The main pulmonary [place]co an[place]io [place] are dilated suggesting pulmonary artery hypertension. Lungs and pleural spaces: Evaluation of the lung parenchyma is degraded by motion artifact. No airspa ce consolidation or pleural effusion is identified. The trachea and central airways are clear. There are scattered foci of parenchymal scarring. Mediastinum: There is no mediastinal lymphadenopathy. Ivis: Not well assessed without IV contrast. Axillae: There is no axillary lymphadenopathy. Upper abdomen: There is a small hiatal hernia. Cholecystectomy clips are noted. Skeletal structures: The skeletal structures are osteopenic. No lytic or blastic bony lesions are see n. Degenerative change and hyperkyphosis is noted in the thoracic spine. Arthritic change is seen in the shoulders. There are chronic/healed left-sided rib fractures. IMPRESSION: 1. There is no airspace consolidation or pleural effusion. 2. Cardiomegaly. 3. Additional findings as above. ACT 112: Negative or not required by law. Electronically signed by: Donnell Melchor M.D. 01/29/2023 6:36 PM
[2023-01-29] MEDS: FLUTICASONE/VILANTEROL 100/25MCG 14 PUFFS/INHALER INH SCH (20:58)
[2023-01-29] MEDS: METOPROLOL TARTRATE 25 MG TAB PO SCH (21:00)
[2023-01-29] MEDS: FENOFIBRATE NANOCRYSTALLIZED 145 MG TABLET PO SCH (21:02)
[2023-01-30] MEDS: NSS + 20MEQ KCL 20 MEQ/1,000 ML BAG IV SCH (00:55)
[2023-01-30] MEDS: LEVOTHYROXINE SODIUM 112 MCG TABLET PO SCH (06:42)
[2023-01-30] MEDS: ALBUT/IPRATROP 3MG/0.5MG NEB 3 ML VIAL NEB SCH ×4 (07:21→19:58)
[2023-01-30 07:27] LABS: Basophils # (auto) 0.02 K/uL (0.00-0.20); Basophils % (auto) 0.2 %; Hematocrit (blood only) 32.3 % (37.0-47.0); Immature Granulocytes # (auto) 0.13 K/uL (0.01-0.20); Immature Granulocytes % (auto) 1.1 %; Lymphocytes # (auto) 0.84 K/uL (1.20-3.40); Lymphocytes % (auto) 6.8 %; Mean Corpuscular Hemoglobin 31.6 pg (25.0-34.0); Mean Corpuscular Hgb Conc 34.1 g/dL (32.0-36.0); Mean Corpuscular Volume 92.8 fL (80.0-100.0); Mean Platelet Volume 10.2 fL (9.4-12.4); Monocytes # (auto) 0.43 K/uL (0.11-0.59); Monocytes % (auto) 3.5 %; Neutrophils # (auto) 10.88 K/uL (1.40-6.50); Neutrophils % (auto) 88.4 %; Platelet Count 321 K/uL (130-400); RDW Coefficient of Variation 13.2 % (11.5-14.5); RDW Standard Deviation 44.6 fL (36.4-46.3); Red Blood Count 3.48 M/uL (4.20-5.40)
--- NOTE | 2023-01-30 07:36 | Pulmonary Consultation ---
Date of Consultation January 30, 2023 Assessment & Plan (1) Asthma: (2) Eosinophilia: (3) Asthma with exacerbation: (4) H/O aortic valve replacement: (5) GERD (gastroesophageal reflux disease): Plan CT chest 01/29/2023 personally reviewed: Bilateral apical pleural scarring Motion degraded study No significant mediastinal lymphadenopathy --Acute hypoxic respiratory failure --> back to room air No clear signs of pneumonia BNP 472 Respiratory bio fire negative for everything 01/28/2023 Nasal MRSA negative --Asthma with asthmatic bronchitis On usual at home Does have strong family history of asthma Used to be on Advair 250-50 in the past Has allergies to mold Absolute eosinophil count 790 on 01/28/2023 Treat the patient as if she has asthma IgE as well as RAST panel ordered along with Aspergillus antibody --Chronic cough Multifactorial Patient does have Zenker's diverticulum which makes her risk for coughing --> scheduled for surgery by ENT in the near future She does have reflux disease as well --> already on pantoprazole 40 mg twice daily Asthma it can also cause cough Not on any medication to make her cough -- Peripheral eosinophilia Absolute eosinophil count 790 on 01/28/2023 Plan: Follow-up RAST panel, IgE as well as tryptase level to be done tomorrow morning DC Siobhan and rather give the patient a nebulized Perforomist and budesonide Incruse to be used on a daily basis. I will ask RT to make sure patient has good technique when it comes to inhalers Decrease Solu-Medrol to 40 mg on a daily basis Mucinex-DM to be used [id number] every 8 hours Benzonatate Perles can be added if need be Recommend 2D echo if not already done All questions and queries of the patient as well as patient's daughter were answered in depth Please note the above document was generated using voice recognition software. It may contain grammatical, syntax or spelling errors.Any formal questions or concerns about the content, text or information contained within the body of this dictation should be directly addressed to the provider for clarification. History of Present Illness Attending Physician: Pavan Travis MD History of Present Illness 87-year-old female present to the hospital shortness of breath Past medical history: Asthma, dyslipidemia, allergic rhinitis, GERD, hypothyroidism, hypertension, Zenker's diverticulum Pulmonary consulted for eosinophilia Patient's daughter were in the room at the time of examination. She was saturating 94-95% on room air She was not in any respiratory distress She has had bouts of issues with breathing which has been going on for approximately a year. It is mostly preceded by her fits of coughing. It is associated with wheezing Is usually worse when she is laying down. No fever or chills No night sweats, no unintentional weight loss No headache, no blurry vision No chest pain at that time. Does get occasional chest tightness No dysuria, no diarrhea Social history: Lifetime non-smoker, secondhand smoke exposure at work. 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 Pets: None Asthma: Strong family history of asthma in brother as well as both daughters Allergies Allergy/AdvReac Type Severity Reaction Status Date / Time Iodinated Contrast Media Allergy Severe Anaphylaxis Verified 01/28/23 04:33 Patient History Medical History (Updated 01/30/23 @ 07:32 by Pavan Travis MD) GERD (gastroesophageal reflux disease) Hyperlipidemia Hypertension Hypothyroidism (acquired) Vitamin D deficiency Zenker's diverticulum Surgical History (Updated 01/29/23 @ 04:19 by Pavan Travis MD) Heart valve replaced History of appendectomy History of cholecystectomy History of left-sided carotid endarterectomy Social History Smoking Status: Never smoker Hx Alcohol Use: No Hx Substance Use: No Preferred Language: Faroese Communication Ability: Effective 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 Required: No Beliefs That Will Affect Care: None Current Living Situation: Family Current Living Situation Comment: daughter lives with her Feels Safe at Home: Yes Safety Concerns: Feels Safe At This Time Assistive Devices: None Review of Systems Review of Systems: All systems reviewed & are unremarkable except as noted in HPI & below Physical Exam Physical Exam: Constitutional: No acute distress HEENT: EOMI, PERRLA Respiratory system: Good air entry bilaterally, no wheeze, no rhonchi, no crackles CVS: S1-S2 positive, positive 4 out of 6 systolic murmur appreciated best at aorta Abdomen: Soft, nontender, nondistended, positive bowel sounds x4 Extremities: +2 pulses bilaterally radialis/ dorsalis pedis, no cyanosis, +2 pitting edema bilateral lower extremity Neuro: Awake alert oriented x3 Psych: Normal mood and affect G/U: No Grant Skin: no rashes, warm and dry Lymphatic: no cervical or axillary lymphadenopathy Results & Data Results & Data Vital Signs (Past 12 Hours) Vital Signs Temp Pulse Pulse Resp BP Pulse Ox O2 Del Method 01/30/23 07:21 88 18 97 Nasal Cannula 01/30/23 03:00 37.0 C 102 H 21 158/81 H 95 Nasal Cannula 01/29/23 21:00 Nasal Cannula 01/30/23 01:32 80 01/30/23 00:53 81 18 172/81 H 95 Nasal Cannula 01/30/23 00:23 37.1 C 81 20 167/75 H 96 Nasal Cannula 01/29/23 23:00 36.8 C 75 19 142/68 H 93 Room Air 01/29/23 19:41 76 16 97 Room Air O2 Flow Rate 01/30/23 07:21 1 01/30/23 03:00 01/29/23 21:00 2 01/30/23 01:32 01/30/23 00:53 2 01/30/23 00:23 2 01/29/23 23:00 01/29/23 19:41 Laboratory Results 01/30/23 06:20 PG Care Time/CCT Total # of Minutes Spent Total Time Spent with Patient: Total time spent is greater than 50% in coordination of care (as documented) at patient's floor/unit and/or counseling patient: Coding Level of Care Code 43619 INT INP/OBS CARE 3/75MIN Diagnoses Asthma J45.909 Eosinophilia D72.10 Asthma with exacerbation J45.901 H/O aortic valve replacement Z95.2 GERD (gastroesophageal reflux disease) K21.9
[2023-01-30 07:40] LABS: BUN Creatinine Ratio 22.1 (10-20); Calcium 8.2 mg/dl (8.6-10.3); Creatinine Clr Calc Pharmacy 35.9 ml/min; Est GFR (African American) 51.3 ml/min; Est GFR (Non-African American) 44.3 ml/min
[2023-01-30] MEDS: methylPREDNISolone 40 MG in SYRINGE 0 ML IV SCH (08:52)
[2023-01-30] MEDS: PANTOprazole 40 MG in SYRINGE 0 ML IV SCH ×2 (08:53→21:14)
[2023-01-30] MEDS: CLOPIDOGREL BISULFATE 75 MG TAB PO SCH (08:53)
[2023-01-30] MEDS: METOPROLOL TARTRATE 25 MG TAB PO SCH ×2 (08:53→21:14)
[2023-01-30] MEDS: FAMOTIDINE 20 MG TAB PO SCH ×2 (08:53→21:15)
[2023-01-30] MEDS: ENOXAPARIN INJ 40 MG/0.4 ML SYR SQ SCH (08:54)
[2023-01-30] MEDS: FLUTICASONE/VILANTEROL 100/25MCG 14 PUFFS/INHALER INH SCH (08:54)
[2023-01-30] MEDS: THIAMINE HCL 200 MG in SODIUM CHLORIDE 0.9% 50 ML IV SCH (08:54)
--- NOTE | 2023-01-30 10:45 | Electrocardiogram Report ---
Test Reason : Blood Pressure : / mmHG Vent. Rate : 079 BPM Atrial Rate : 079 BPM P-R Int : 160 ms QRS Dur : 072 ms QT Int : 380 ms P-R-T Axes : -29 006 017 degrees QTc Int : 435 ms Normal sinus rhythm Normal ECG When compared with ECG of 28-JAN-2023 00:06, No significant change was found Confirmed by Ivan Penn ([id number]) on 01/30/2023 10:44:59 AM Referred By: REFERRED SELF Confirmed By:Nicolás Penn
[2023-01-30] MEDS: UMECLIDINIUM BROMIDE 62.5MCG/BLISTER 7 PUFFS/INHALER INH SCH (11:04)
[2023-01-30] MEDS: guaiFENesin/DEXTROM SYRUP 200MG/20MG 10ML UDC PO SCH ×2 (14:40→21:14)
--- NOTE | 2023-01-30 14:45 | XCELERA ---
[id number]
[2023-01-30] MEDS ORDERED: LEVALBUTEROL 1.25 MG/3 ML NEB NEB STA (17:20)
[2023-01-30] MEDS: FORMOTEROL 20 MCG/2 ML VIAL NEB SCH (19:57)
[2023-01-30] MEDS: BUDESONIDE 0.25 MG/2 ML VIAL (PULMICORT) NEB SCH (19:57)
[2023-01-30] MEDS: FENOFIBRATE NANOCRYSTALLIZED 145 MG TABLET PO SCH (21:16)
--- NOTE | 2023-01-30 22:41 | Hospitalist Progress Note ---
Date of Service January 30, 2023 Assessment & Plan (1) Aspiration pneumonia: Plan: suspected - but cxr x 2 without pneumonic infiltrates. despite 48+ hours of IV steroids, nebs, and IV zosyn she continues with severe, diffuse wheezing on lung exam. video swallow results noted -- no aspiration despite her Zenker's diverticulum. family reports a prior dx of "asthma" and has seen pulmonary in [place]. just had PFTs sometime in the last few months - family was told they were normal (I don't have those PFTs). to get more information on current clinical state, r/o pneumonia, r/o other lung diseases -- obtain noncontrast chest CT. appreciate input from pulm. has eosinophilia - see below. stopped zosyn. Treating as if patient has asthma. (2) Asthma: Plan: diagnosis made in [place] at some point in the past. has albuterol at home, but is not on other agents (controller agent, etc). daughter to bring a copy of her PFTs tomorrow. CT chest ordered. pulmonary consult. cont steroids and nebs and pulm toilet. (3) Eosinophilia: Plan: 10.5% on admission cbc differential. this may be a clue to the etiology of the above. eosinophilic asthma? other eosinophilic lung disease? chest CT pending. repeat cbc w/ diff in am. check sed rate. pulmonary consult. review PFTs once daughter brings in copy from home. (4) Zenker's diverticulum: Plan: Dx ~2 weeks ago at [facility]. Thought to be causing most of her dysphagia. To undergo surgical repair of Zenker's diverticulum on 02/07/[address] Casper at [facility]. Appreciate speech therapy consult. Video swallow WITHOUT aspiration despite the Zenker's. cont PPI. minced/moist diet. crush pills - put in pudding carrier. (5) Lactic acidosis: Plan: etiology? the lactic acidosis took 24 hours to resolve. despite the elevated lactate her pH was NORMAL. she has never been hypotensive. normal renal function. lactate improved with IV Fluids. etiology?? does have LVOT obstruction but she never had evidence of cardiogenic shock. check a thiamine level - Wernicke's can cause lactic acidosis. while awaiting level - place on IV thiamine. (6) Left ventricular outflow tract obstruction: Plan: harsh systolic murmur on exam. daughter just happened to have her latest echo from a few weeks ago on her phone (done at [facility]). this confirmed LVOT obstruction with gradient of 20mmHg. resumed metoprolol. stop ARB. avoid afterload reduction. BP remains stable. will repeat her echo to ensure her AVR is intact and repeat measurements of her LVOT obstruction. of note - I do not believe she has volume overload causing her pulmonary symptoms. (7) Hypertension: Plan: resumed metoprolol but stop ARB due to #4 above. (8) GERD (gastroesophageal reflux disease): Plan: place on IV PPI twice daily. cont pepcid 20mg BID as well. (9) H/O aortic valve replacement: Plan: bioprosthetic [facility] follows with cardiology in [place] repeat echo requested daughter to print out the echo report from [place] and drop off to us (10) Hypothyroidism (acquired): Plan: TSH elevated pt admits to missing several doses of synthroid at home will not change her dose simply encourage compliance repeat TSH as outpatient in a few weeks (11) Hyperlipidemia: Plan: resume usual meds for such (12) History of left-sided carotid endarterectomy: Plan: cont plavix cont cholesterol agents Plan multiple family members updated at bedside today complex care coordination Admission and Anticipated Discharge Date Admission Date: January 28, 2023 Subjective Patient reports breathing better. She has no new complaints. Review of Systems Review of Systems: All systems reviewed & are unremarkable except as noted in HPI & below Physical Exam Physical Exam: gen - NAD, comfortable sitting in bed mouth - MMM heart - 3-4/6 holosystolic murmur heard all over chest but loudest at the RUSB, s1 s2, RRR lungs - diffuse wheezes ALL lung segments - no changes from prior exam; minimal rales bases; no increased work of breathing; taking deep breaths causes her to cough abd - soft NT ND BS+ ext - no edema, pulses 2 + b/l psych - a/o x 3 Results & Data Results & Data Vital Signs (Past 12 Hours) Vital Signs Temp Pulse Pulse Resp BP Pulse Ox O2 Del Method 01/30/23 19:31 37 C 82 18 146/69 H 94 Room Air 01/30/23 19:58 80 20 96 Room Air 01/30/23 17:41 87 18 97 Nasal Cannula 01/30/23 14:04 83 01/30/23 15:23 84 18 96 Room Air 01/30/23 15:14 36.9 C 78 20 160/72 H 93 Room Air 01/30/23 11:17 36.8 C 77 20 159/76 H 94 Room Air 01/30/23 11:11 86 16 95 Room Air O2 Flow Rate 01/30/23 19:31 01/30/23 19:58 01/30/23 17:41 2 01/30/23 14:04 01/30/23 15:23 01/30/23 15:14 01/30/23 11:17 01/30/23 11:11 PG Care Time/CCT Total # of Minutes Spent Total Time Spent with Patient: Total time spent is greater than 50% in coordination of care (as documented) at patient's floor/unit and/or counseling patient: Coding Level of Care Code 17943 SUB INP/OBS CARE 2/35MIN Diagnoses Aspiration pneumonia J69.0 Aspiration pneumonia type: unspecified Laterality: unspecified laterality Lung location: unspecified part of lung Asthma J45.909 Eosinophilia D72.10 Zenker's diverticulum K22.5 Lactic acidosis E87.20 Left ventricular outflow tract obstruction Q24.8 Hypertension I10 GERD (gastroesophageal reflux disease) K21.9 H/O aortic valve replacement Z95.2 Hypothyroidism (acquired) E03.9 Hyperlipidemia E78.5 History of left-sided carotid endarterectomy Z98.890 (1) Aspiration pneumonia Aspiration pneumonia type: unspecified Laterality: unspecified laterality Lung location: unspecified part of lung Qualified Code(s): J69.0 - Pneumonitis due to inhalation of food and vomit
[2023-01-31] MEDS: LEVOTHYROXINE SODIUM 112 MCG TABLET PO SCH (05:50)
[2023-01-31] MEDS: ALBUT/IPRATROP 3MG/0.5MG NEB 3 ML VIAL NEB SCH ×3 (07:09→14:32)
[2023-01-31] MEDS: BUDESONIDE 0.25 MG/2 ML VIAL (PULMICORT) NEB SCH (07:09)
[2023-01-31] MEDS: FORMOTEROL 20 MCG/2 ML VIAL NEB SCH (07:09)
[2023-01-31] MEDS: UMECLIDINIUM BROMIDE 62.5MCG/BLISTER 7 PUFFS/INHALER INH SCH ×2 (07:18→08:18)
[2023-01-31] MEDS: FAMOTIDINE 20 MG TAB PO SCH (08:16)
[2023-01-31] MEDS: ENOXAPARIN INJ 40 MG/0.4 ML SYR SQ SCH (08:17)
[2023-01-31] MEDS: guaiFENesin/DEXTROM SYRUP 200MG/20MG 10ML UDC PO SCH ×2 (08:17→13:35)
[2023-01-31] MEDS: CLOPIDOGREL BISULFATE 75 MG TAB PO SCH (08:17)
[2023-01-31] MEDS: METOPROLOL TARTRATE 25 MG TAB PO SCH (08:17)
[2023-01-31] MEDS: THIAMINE HCL 200 MG in SODIUM CHLORIDE 0.9% 50 ML IV SCH (08:24)
[2023-01-31] MEDS: PANTOprazole 40 MG in SYRINGE 0 ML IV SCH (08:24)
[2023-01-31 08:28] LABS: Hematocrit (blood only) 33.1 % (37.0-47.0); Hemoglobin 11.5 g/dl (12.0-16.0); Mean Corpuscular Hemoglobin 31.6 pg (25.0-34.0); Mean Corpuscular Hgb Conc 34.7 g/dL (32.0-36.0); Mean Corpuscular Volume 90.9 fL (80.0-100.0); Platelet Count 310 K/uL (130-400); RDW Coefficient of Variation 12.9 % (11.5-14.5); RDW Standard Deviation 42.4 fL (36.4-46.3); Red Blood Count 3.64 M/uL (4.20-5.40); White Blood Count 10.84 K/ul (4.8-10.8)
[2023-01-31 08:42] LABS: Anion Gap 7 (3-11); BUN Creatinine Ratio 23.6 (10-20); Blood Urea Nitrogen 25 mg/dl (6-23); C Reactive Protein < 0.50 mg/dl (0-0.5); Calcium 8.2 mg/dl (8.6-10.3); Carbon Dioxide 28 mmol/L (21-32); Chloride 105 mmol/L (98-107); Creatinine Clr Calc Pharmacy 38.1 ml/min; Est GFR (African American) 55.4 ml/min; Est GFR (Non-African American) 47.8 ml/min; Glucose 88 mg/dl (70-99(Fasting)); Potassium 3.2 mmol/L (3.5-5.1); Sodium 140 mmol/L (136-145)
--- NOTE | 2023-01-31 08:43 | Pulmonology Progress Note ---
Date of Service January 31, 2023 Assessment & Plan (1) Asthma: (2) Eosinophilia: (3) Asthma with exacerbation: (4) H/O aortic valve replacement: (5) GERD (gastroesophageal reflux disease): Plan CT chest 01/29/2023 personally reviewed: Bilateral apical pleural scarring Motion degraded study No significant mediastinal lymphadenopathy 2D echo 01/30/2023: Moderate concentric LVH, EF 60-65%, RV normal in size and function, bioprosthetic aortic valve with abnormal gradient --Acute hypoxic respiratory failure --> back to room air No clear signs of pneumonia BNP 472 Respiratory bio fire negative for everything 01/28/2023 Nasal MRSA negative Absolute eosinophil count 719 on 01/28/2023 --Asthma with asthmatic bronchitis On Albuterol at home Does have strong family history of asthma Used to be on Advair 250-50 in the past Has allergies to mold Absolute eosinophil count 790 on 01/28/2023 Treat the patient as if she has asthma Follow-up IgE as well as RAST panel along with Aspergillus antibody --Chronic cough Multifactorial 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 Can taper Solu-Medrol to prednisone as of tomorrow Continue with Mucinex-DM to be used [id number] every 8 hours Benzonatate Perles can be added if need be On discharge would recommend BrezTri or Trelegy 200 to be used on a daily basis along with as needed albuterol Case was discussed with Dr. Zarco Please note the above document was generated using voice recognition software. It may contain grammatical, syntax or spelling errors.Any formal questions or concerns about the content, text or information contained within the body of this dictation should be directly addressed to the provider for clarification. Admission and Anticipated Discharge Date Admission Date: January 28, 2023 Subjective Patient seen and examined at bedside. No acute distress, no adverse events overnight. She says she is feeling better compared to yesterday Coughing has decreased in intensity. Was able to use her inhaler without any issues along with nebulizers No headache No nausea vomiting Review of Systems Review of Systems: All systems reviewed & are unremarkable except as noted in Subjective Physical Exam Physical Exam: Constitutional: No acute distress HEENT: EOMI, PERRLA Respiratory system: Good air entry bilaterally, positive mild rhonchi, mild expiratory wheeze, no crackles CVS: S1-S2 positive, positive 3 out of 6 systolic murmur appreciated best at aorta Abdomen: Soft, nontender, nondistended, positive bowel sounds x4 Extremities: +2 pulses bilaterally radialis/ dorsalis pedis, no cyanosis, +1 pitting edema bilateral lower extremity Neuro: Awake alert oriented x3 Psych: Normal mood and affect G/U: No Grant Skin: no rashes, warm and dry Lymphatic: no cervical or axillary lymphadenopathy Results & Data Results & Data Vital Signs (Past 12 Hours) Vital Signs Temp Pulse Pulse Resp BP Pulse Ox O2 Del Method 01/31/23 07:14 37.1 C 73 18 169/71 H 99 Nebulizer 01/31/23 05:57 75 01/31/23 07:19 76 18 95 Room Air 01/31/23 07:09 75 18 95 Room Air 01/31/23 03:37 37 C 78 18 164/73 H 99 Nasal Cannula 01/31/23 00:01 77 01/30/23 23:52 36.7 C 70 18 154/72 H 98 Nasal Cannula 01/30/23 21:20 Room Air O2 Flow Rate 01/31/23 07:14 01/31/23 05:57 01/31/23 07:19 01/31/23 07:09 01/31/23 03:37 2 01/31/23 00:01 01/30/23 23:52 2 01/30/23 21:20 Laboratory Results 01/31/23 07:26 PG Care Time/CCT Total # of Minutes Spent Total Time Spent with Patient: Total time spent is greater than 50% in coordination of care (as documented) at patient's floor/unit and/or counseling patient: Coding Level of Care Code 92200 SUB INP/OBS CARE 2/35MIN Diagnoses Asthma J45.909 Eosinophilia D72.10 Asthma with exacerbation J45.901 H/O aortic valve replacement Z95.2 GERD (gastroesophageal reflux disease) K21.9
[2023-01-31] MEDS ORDERED: methylPREDNISolone 40 MG in SYRINGE 0 ML IV SCH (09:00)
[2023-01-31] MEDS ORDERED: POTASSIUM CHLORIDE CRTAB 20 MEQ TABCR PO STA (13:03)
[2023-01-31] MEDS ORDERED: POTASSIUM CHLORIDE CRTAB 20 MEQ TABCR PO SCH (14:00)
--- NOTE | 2023-01-31 17:35 | Discharge Summary ---
Date of Service January 31, 2023 Admission HPI Per Admitting Provider The patient is an 87-year-old female with a past medical history including aspiration pneumonia, asthma, hyperlipidemia, allergic rhinitis, carotid artery stenosis, GERD, hypothyroidism, hypertension, hypokalemia, vitamin D deficiency and a Zenker's diverticulum. She presents to the emergency department with a few days of cough, associated with eating, and progressive shortness of breath and rattling sounds when she is breathing. She underwent a barium swallow test about 10 days ago at [facility], was found to have a Zenker's diverticulum, and is to undergo surgical repair by Dr. Casper at [facility] on 02/07/2023. Her daughter reports that she does best with pured foods, and thickened liquids, but she has been off her diet recently due to family issues Principal Diagnosis aspiration pneumonia Discharge Exam gen - NAD, comfortable sitting in bed mouth - MMM heart - 3-4/6 holosystolic murmur heard all over chest but loudest at the RUSB, s1 s2, RRR lungs - diffuse wheezes ALL lung segments - no changes from prior exam; no ralesft NT ND BS+ ext - no edema, pulses 2 + b/l psych - a/o x 3 Discharge Data Allergies Allergy/AdvReac Type Severity Reaction Status Date / Time Iodinated Contrast Media Allergy Severe Anaphylaxis Verified 01/28/23 04:33 Consultations 01/28/23 01:35 ED Decision to Admit Stat 01/30/23 07:00 Consult Pulmonology Routine Ordered Studies 01/29/23 15:39 FL video swallow Routine 01/29/23 16:36 CT chest diagnostic wo con Urgent Hospital Course (1) Aspiration pneumonia: suspected - but cxr x 2 without pneumonic infiltrates. despite 48+ hours of IV steroids, nebs, and IV zosyn she continues with severe, diffuse wheezing on lung exam. video swallow results noted -- no aspiration despite her Zenker's diverticulum. family reports a prior dx of "asthma" and has seen pulmonary in [place]. just had PFTs sometime in the last few months - family was told they were normal (I don't have those PFTs). to get more information on current clinical state, r/o pneumonia, r/o other lung diseases -- obtain noncontrast chest CT. appreciate input from pulm. has eosinophilia - see below. stopped zosyn. Treating as if patient has asthma. (2) Asthma: diagnosis made in [place] at some point in the past. has albuterol at home, but is not on other agents (controller agent, etc). daughter to bring a copy of her PFTs tomorrow. CT chest ordered. pulmonary consult. cont steroids and nebs and pulm toilet. (3) Eosinophilia: 10.5% on admission cbc differential. this may be a clue to the etiology of the above. eosinophilic asthma? other eosinophilic lung disease? chest CT pending. repeat cbc w/ diff in am. check sed rate. pulmonary consult. review PFTs once daughter brings in copy from home. (4) Zenker's diverticulum: Dx ~2 weeks ago at [facility]. Thought to be causing most of her dysphagia. To undergo surgical repair of Zenker's diverticulum on 02/07/[address] Casper at [facility]. Appreciate speech therapy consult. Video swallow WITHOUT aspiration despite the Zenker's. cont PPI. minced/moist diet. crush pills - put in pudding carrier. (5) Lactic acidosis: etiology? the lactic acidosis took 24 hours to resolve. despite the elevated lactate her pH was NORMAL. she has never been hypotensive. normal renal function. lactate improved with IV Fluids. etiology?? does have LVOT obstruction but she never had evidence of cardiogenic shock. (6) Left ventricular outflow tract obstruction: harsh systolic murmur on exam. daughter just happened to have her latest echo from a few weeks ago on her phone (done at [facility]). this confirmed LVOT obstruction with gradient of 20mmHg. resumed metoprolol. stop ARB. avoid afterload reduction. BP remains stable. (7) Hypertension: resumed metoprolol but stop ARB due to #4 above. (8) GERD (gastroesophageal reflux disease): place on IV PPI twice daily. cont pepcid 20mg BID as well. (9) H/O aortic valve replacement: bioprosthetic [facility] follows with cardiology in [place] repeat echo requested (10) Hypothyroidism (acquired): TSH elevated pt admits to missing several doses of synthroid at home will not change her dose simply encourage compliance (11) Hyperlipidemia: resume usual meds for such (12) History of left-sided carotid endarterectomy: cont plavix cont cholesterol agents Plan multiple family members updated at bedside today complex care coordination Total Time Total Time Spent Total Time Spent (In Minutes): 32 Discharge Plan Discharge Items Patient Disposition: Home - Self-Care Reason For Visit: ASPIRATION PNEUMONIA Discharge Diagnosis: sob Condition on Discharge: Fair Activity: Resume your previous activity Non-emergency contact: Primary Care Provider Call non-emergency contact if: you have any medication questions Follow-up/Referrals: Rika Ordonez [Primary Care Provider] - Diet: Heart Healthy Diet Texture: Dental soft (bite-sized) Diet Comment: minced and moist Addtl Attending Provider Instructions: Recommend followup with PCP within 1 week Recommend folllowup with PUlmonary in 1 month A pulmonary function test will be set up for you. Pending Studies at Discharge: No Stand-Alone Forms: My [employer] Story, Smoking Cessation Medications and DC Order Prescriptions: New Trelegy Ellipta 200-62.5-25 mcg blister with device 1 inh inhalation DAILY Qty: 60 0RF Rx Instructions: rinse mouth after use. prednisone 20 mg tablet 20 mg PO DAILY Qty: 9 0RF Rx Instructions: Take 2 tablets in the morning for 3 days, then 1 tablet in the morning for 3 days. clopidogrel 75 mg Tablet 75 mg PO QAM Qty: 30 0RF levothyroxine [Synthroid] 112 mcg Tablet 112 mcg PO DAILYBB Qty: 30 0RF metoprolol succinate 50 mg tablet extended release 24 hr 50 mg PO PM Qty: 30 0RF benzonatate 200 mg capsule 200 mg PO TID PRN (Reason: cough) Qty: 20 0RF fluconazole 150 mg tablet 150 mg PO DAILY Qty: 1 0RF Rx Instructions: administer on day 1 of therapy albuterol sulfate 90 mcg/actuation HFA aerosol inhaler 1 inh inhalation Q6H PRN (Reason: shortness of breath or wheezing) Qty: 8.5 0RF Discharge Orders: Discharge Order (Routine); Ordered 01/31/23 Ordered By: Geoff Zarco Admission Data Admit Date/Time: 01/28/23 02:40 Attending Provider: Geoff Zarco Admit Provider: Cedric Patel Primary Care Provider: Rika Ordonez Other Providers: Cedric Patel ; Dian Mary Other Interventions: Discharge Summary Assessment (RN) Last Done: 01/31/23 17:06 Coding Level of Care Code 78417 INP/OBS DISCH >30 MIN Diagnoses Aspiration pneumonia J69.0 Aspiration pneumonia type: unspecified Laterality: unspecified laterality Lung location: unspecified part of lung Asthma J45.909 Eosinophilia D72.10 Zenker's diverticulum K22.5 Lactic acidosis E87.20 Left ventricular outflow tract obstruction Q24.8 Hypertension I10 GERD (gastroesophageal reflux disease) K21.9 H/O aortic valve replacement Z95.2 Hypothyroidism (acquired) E03.9 Hyperlipidemia E78.5 History of left-sided carotid endarterectomy Z98.890
[2023-01-31] MEDS ORDERED: LANSOPRAZOLE 30 MG SOLTAB PO SCH (21:00)
[2023-02-04 19:16] LABS: Alternaria Class 0; Alternaria IgE <0.10 kU/L; Ash (White) Class 0/1; Ash (White) IgE 0.11 kU/L; Asperg Fumig Class 0; Asperg Fumig IgE <0.10 kU/L; Aspergillus Flavus Negative (Negative); Aspergillus Niger Negative (Negative); Bermuda Grass Class 1; Bermuda Grass IgE 0.41 kU/L; Birch Class 0; Birch IgE <0.10 kU/L; Cat Dander Class 0; Cat Dander IgE <0.10 kU/L; Cladosporium IgE <0.10 kU/L; Cladosporium her Class 0; Cockroach Allergen Class 0; Cockroach IgE Ab <0.10 kU/L; Cottonwood Class 0/1; Cottonwood IgE 0.12 kU/L; D. farinae Class 0; D. farinae IgE <0.10 kU/L; D. pteronyssinus Class 0; D. pteronyssinus IgE <0.10 kU/L; Dog Dander Class 0; Dog Dander IgE <0.10 kU/L; Elm Class 0/1; Elm IgE 0.11 kU/L; Immunoglobulin IgE 248 kU/L (<OR=114); Maple (Box Elder) IgE <0.10 kU/L; Maple Class 0; Mountain Cedar Class 0/1; Mountain Cedar IgE 0.17 kU/L; Mouse Urine Protein Class 0; Mouse Urine Protein IgE <0.10 kU/L; Mugwort (W6) IgE 2.71 kU/L; Mugwort Class 2; Oak-White Class 0; Oak-White IgE <0.10 kU/L; Penic Notatum Class 0; Penic Notatum IgE <0.10 kU/L; Rough Pigweed Class 0; Rough Pigweed IgE <0.10 kU/L; Sheep Sorrel Class 0; Sheep Sorrel IgE <0.10 kU/L; Short Ragweed Class 2; Short Ragweed IgE 0.96 kU/L; Sycamore Class 0/1; Sycamore IgE 0.11 kU/L; Timothy Class 0/1; Walnut Tree Class 0/1; White Mulberry Class 0; White Mulberry IgE <0.10 kU/L
== END 2023-01-31 18:35 | disposition home or self-care (01) | DRG 196 ==
LOC: ED 23:58 → 2S 01-28 02:40 → INTOOBSV 01-28 02:40 → SUATTDRO 01-28 02:40 → 2S 01-28 04:11